=== PATIENT | male | born 1995 | race Caucasian/White ===

== ENCOUNTER 2017-06-14 19:35 | Emergency (ER) | payer SELFPAY ==
--- NOTE | 2017-06-14 20:49 | EDM.PDOC ---
ED HPI GENERAL MEDICAL PROBLEM - General Stated Complaint: PT HAS FLU SYMPTONS Time Seen by Provider: 06/14/17 20:10 Source of Information: Reports: Patient History Limitations: Reports: No Limitations - History of Present Illness INITIAL COMMENTS - FREE TEXT/NARRATIVE: HISTORY AND PHYSICAL: History of present illness: [Patient comes to the emergency room complaining of generalized malaise, body aches, fever and chills, dry hacking cough for the past 3 days. Has not checked temperature, but feels that he has had fever. He's been taking some ibuprofen on and off which does improve his symptoms. No abdominal pain nausea or vomiting. Had a couple episodes of loose stools today without blood. He has not had much appetite. No headache weakness numbness or tingling. States that he is otherwise healthy. No chronic medical conditions. Occasional alcohol use. Does not smoke cigarettes regularly.] Review of systems: As per history of present illness and below otherwise all systems reviewed and negative. Past medical history: As per history of present illness and as reviewed below otherwise noncontributory. Surgical history: As per history of present illness and as reviewed below otherwise noncontributory. Social history: No reported history of drug or alcohol abuse. Family history: As per history of present illness and as reviewed below otherwise noncontributory. Physical exam: HEENT: Atraumatic, normocephalic. TMs are pearly carlton and without erythema. Oral mucous membranes are pink and moist. Face is nontender with palpation. Neck supple, no lymphadenopathy. Lungs: Clear to auscultation, breath sounds equal bilaterally, chest nontender. Heart: S1S2, regular, negative for clicks, rubs, or JVD. Abdomen: Soft, nondistended, nontender. Negative for costovertebral tenderness. Pelvis: Stable nontender. Genitourinary: Deferred. Rectal: Deferred. Extremities: Atraumatic, negative for cords or calf pain. Neurovascular unremarkable. Neuro: Awake, alert, oriented. Motor and sensory unremarkable throughout. Exam nonfocal. Diagnostics: [Influenza swab] Therapeutics: [] Impression: [Influenza B] Plan: [Discussed lab results with patient. He is currently afebrile and appears comfortable in exam room. Recommend discharge to home with conservative and symptomatic therapies reviewed. Strict return precautions are discussed. He is in agreement with today's plan. All questions are answered and concerns are addressed. He is given a note excusing him from work until the very 2017.] Definitive disposition and diagnosis as appropriate pending reevaluation and review of above. throat Pain Score (Numeric/FACES): 9 - Related Data Allergies Allergy/AdvReac Type Severity Reaction Status Date / Time No Known Allergies Allergy Verified 06/14/17 20:09 Home Meds: Home Meds . [No Known Home Meds] 06/14/17 [History] ED ROS GENERAL - Review of Systems Review Of Systems: ROS reveals no pertinent complaints other than HPI. ED EXAM, GENERAL - Physical Exam Exam: See Below Course - Vital Signs Last Recorded V/S: Last Vital Signs Temp 98.6 F 06/14/17 20:03 Pulse 93 06/14/17 20:03 Resp 18 06/14/17 20:03 BP 130/72 06/14/17 20:03 Pulse Ox 97 06/14/17 20:03 Departure - Departure Time of Disposition: 21:00 Disposition: Home, Self-Care 01 Condition: Good Clinical Impression: Influenza B - Discharge Information Instructions: Influenza, Adult, [id number] Referrals: PCP,None [Primary Care Provider] - Forms: ED Department Discharge Additional Instructions: The following information is given to patients seen in the emergency department who are being discharged to home. This information is to outline your options for follow-up care. We provide all patients seen in our emergency department with a follow-up referral. The need for follow-up, as well as the timing and circumstances, are variable depending upon the specifics of your emergency department visit. If you don't have a primary care physician on staff, we will provide you with a referral. We always advise you to contact your personal physician following an emergency department visit to inform them of the circumstance of the visit and for follow-up with them and/or the need for any referrals to a consulting specialist. The emergency department will also refer you to a specialist when appropriate. This referral assures that you have the opportunity for follow-up care with a specialist. All of these measure are taken in an effort to provide you with optimal care, which includes your follow-up. Under all circumstances we always encourage you to contact your private physician who remains a resource for coordinating your care. When calling for follow-up care, please make the office aware that this follow-up is from your recent emergency room visit. If for any reason you are refused follow-up, please contact the [facility] emergency department at and asked to speak to the emergency department charge nurse. [facility] [address] [place] [id number] Follow-up with a local primary care provider at the clinic listed above in 48- 72 hours. take Robitussin or Delsym cough syrup as needed for chest congestion. Alternate Tylenol with ibuprofen every 2-3 hours as needed for fever or discomfort. It is imperative that you rest and push fluids. Return to ER as needed as discussed.
== END 2017-06-14 21:13 | disposition home or self-care (01) ==
LOC: MW.ED 19:35
DX: J10.1 Influenza due to other identified influenza virus with other respiratory manifestations (principal)
CPT/HCPCS: 87804; 99283

== ENCOUNTER 2019-02-20 09:06 | Emergency (ER) | payer BC ==
[2019-02-20] MEDS ORDERED: Ondansetron 4 MG Tab.DIS PO ONE (09:39)
[2019-02-20] MEDS ORDERED: Sodium Chloride 0.9% 1,000 ML IV ONE (09:48)
[2019-02-20] MEDS ORDERED: Ondansetron 4 MG/2 ML SDV IVPUSH ONE (09:56)
[2019-02-20] MEDS ORDERED: Ondansetron 4 MG/2 ML SDV ONE (09:59)
--- NOTE | 2019-02-20 10:08 | EDM.PDOC ---
ED HPI GENERAL MEDICAL PROBLEM - General Chief Complaint: General Stated Complaint: FEVER,LIGHT HEADED Time Seen by Provider: 02/20/19 09:23 Source of Information: Reports: Patient History Limitations: Reports: No Limitations - History of Present Illness INITIAL COMMENTS - FREE TEXT/NARRATIVE: HISTORY AND PHYSICAL: History of present illness: 23-year-old male presents to ER today complaining of subjective fevers, dry cough and headache for the past 1 week. He reports waking up this morning and feeling lightheaded which prompted him to come to the ER for further evaluation. Patient reports that his headache is exacerbated by bright lights. He also complains of nausea and decreased appetite. Patient is a non-smoker and denies any illicit drug use including vaping. He reports being up to date on all childhood vaccines. Patient denies having any muscle aches, neck pain, shortness of breath, chest pain or sinus pressure pain. Review of systems: As per history of present illness and below otherwise all systems reviewed and negative. Past medical history: As per history of present illness and as reviewed below otherwise noncontributory. Surgical history: As per history of present illness and as reviewed below otherwise noncontributory. Social history: No reported history of drug or alcohol abuse. Family history: As per history of present illness and as reviewed below otherwise noncontributory. Physical exam: HEENT: Atraumatic, normocephalic, pupils reactive, negative for conjunctival pallor or scleral icterus, mucous membranes moist, mild pharyngeal erythema. Neck: supple, trachea midline, non-tender to palpation, Brudzinski's sign negative. Lungs: Clear to auscultation. Heart: S1S2, regular. Abdomen: Soft, nondistended, nontender. Normal bowel sounds. Pelvis: Deferred Genitourinary: Deferred. Rectal: Deferred. Extremities: No lower extremity edema. Neuro: Awake, alert, oriented. Cranial nerves II through XII unremarkable. Motor and sensory unremarkable throughout. Exam nonfocal. Diagnostics: CBC, CMP, rapid strep, influenza swab, CXR, EKG Therapeutics: IVF, zofran Impression: 1. Community acquired pneumonia Plan: 1. Script provided for azithromycin and albuterol inhaler prn. Tylenol prn fevers. Recommended following up with PCP within 1 week. RTC for persistent or worsening symptoms. Definitive disposition and diagnosis as appropriate pending reevaluation and review of above. Headache Pain Score (Numeric/FACES): 10 - Related Data Allergies Allergy/AdvReac Type Severity Reaction Status Date / Time No Known Allergies Allergy Verified 02/20/19 09:27 Home Meds: Home Meds Albuterol Sulfate [Albuterol Sulfate Hfa] 18 gm IH Q6H PRN 30 Days #1 [email or web address] 02/20/19 [Rx] Azithromycin 250 mg PO DAILY 5 Days #6 tablet 02/20/19 [Rx] Past Medical History HEENT History: Reports: None - Past Surgical History HEENT Surgical History: Reports: Tonsillectomy Social & Family History - Family History Family Medical History: Noncontributory - Tobacco Use Smoking Status *Q: Never Smoker Second Hand Smoke Exposure: No - Caffeine Use Caffeine Use: Reports: None - Recreational Drug Use Recreational Drug Use: No ED ROS GENERAL - Review of Systems Review Of Systems: ROS reveals no pertinent complaints other than HPI. ED EXAM, GENERAL - Physical Exam Exam: See Below Course - Vital Signs Last Recorded V/S: Last Vital Signs Temp 97.4 F 02/20/19 09:25 Pulse 93 02/20/19 09:25 Resp 18 02/20/19 09:25 BP 108/63 02/20/19 09:25 Pulse Ox 93 L 02/20/19 09:25 - Orders/Labs/Meds Orders: Active Orders 24 hr Category Date Time Status EKG Documentation Completion [RC] STAT Care 02/20/19 09:48 Ordered CULTURE STREP A CONFIRMATION [] Stat Lab 02/20/19 10:43 Results STREP SCRN A RAPID W CULT CONF [RM] Stat Lab 02/20/19 09:48 Ordered Labs: Laboratory Tests 02/20/19 02/20/19 Range/Units 10:05 10:05 WBC 9.02 (4.0-11.0) K/uL RBC 5.15 (4.50-5.90) M/uL Hgb 15.0 (13.0-17.0) g/dL Hct 44.7 (38.0-50.0) % MCV 86.8 (80.0-98.0) fL MCH 29.1 (27.0-32.0) pg MCHC 33.6 (31.0-37.0) g/dL RDW Std Deviation 44.0 (28.0-62.0) fl RDW Coeff of Efren 14 (11.0-15.0) % Plt Count 242 (150-400) K/uL MPV 9.60 (7.40-12.00) fL Neut % (Auto) 70.0 (48.0-80.0) % Lymph % (Auto) 18.7 (16.0-40.0) % [place] % (Auto) 10.9 (0.0-15.0) % Eos % (Auto) 0.3 (0.0-7.0) % Baso % (Auto) 0.1 (0.0-1.5) % Neut # (Auto) 6.3 H (1.4-5.7) K/uL Lymph # (Auto) 1.7 (0.6-2.4) K/uL [place] # (Auto) 1.0 H (0.0-0.8) K/uL Eos # (Auto) 0.0 (0.0-0.7) K/uL Baso # (Auto) 0.0 (0.0-0.1) K/uL Nucleated RBC % 0.0 /100WBC Nucleated RBCs # 0 K/uL Sodium 137 (136-148) mmol/L Potassium 4.0 (3.5-5.1) mmol/L Chloride 99 (98-107) mmol/L Carbon Dioxide 26.3 (21.0-32.0) mmol/L BUN 11 (7.0-18.0) mg/dL Creatinine 1.4 H (0.8-1.3) mg/dL Est Cr Clr Drug Dosing 101.61 mL/min Estimated GFR (MDRD) > 60.0 ml/min Glucose 110 H (74-106) mg/dL Calcium 9.2 (8.5-10.1) mg/dL Total Bilirubin 0.5 (0.2-1.0) mg/dL AST 26 (15-37) IU/L ALT 39 (14-63) IU/L Alkaline Phosphatase 69 (46-116) U/L Total Protein 8.1 (6.4-8.2) g/dL Albumin 3.5 (3.4-5.0) g/dL Globulin 4.6 H (2.6-4.0) g/dL Albumin/Globulin Ratio 0.8 L (0.9-1.6) Meds: Medications Discontinued Medications Generic Name Dose Route Start Last Admin Trade Name Freq PRN Reason Stop Dose Admin Sodium Chloride 1,000 mls @ 999 mls/hr 02/20/19 09:48 02/20/19 10:13 Normal Saline IV 02/20/19 10:48 999 mls/hr STAT ONE Administration Ketorolac Tromethamine 30 mg 02/20/19 10:44 02/20/19 10:54 Toradol IVPUSH 02/20/19 10:45 30 mg ONETIME ONE Administration Ondansetron HCl 4 mg 02/20/19 09:39 02/20/19 09:56 Zofran Odt PO 02/20/19 09:40 Not Given ONETIME ONE Ondansetron HCl 4 mg 02/20/19 09:56 02/20/19 10:13 Zofran IVPUSH 02/20/19 09:57 4 mg ONETIME ONE Administration Ondansetron HCl Confirm 02/20/19 09:59 02/20/19 10:20 Zofran Administered 02/20/19 10:00 Not Given Dose 4 mg .ROUTE .STK-MED ONE Departure - Departure Time of Disposition: 11:19 Disposition: Home, Self-Care 01 Condition: Fair Clinical Impression: Community acquired pneumonia - Discharge Information *PRESCRIPTION DRUG MONITORING PROGRAM REVIEWED*: Not Applicable *COPY OF PRESCRIPTION DRUG MONITORING REPORT IN PATIENT CORBIN: Not Applicable Prescriptions: Albuterol Sulfate [Albuterol Sulfate Hfa] 18 gm IH Q6H PRN 30 Days #1 hfa.aer.ad PRN Reason: Shortness Of Breath Azithromycin 250 mg PO DAILY 5 Days #6 tablet Instructions: Community-Acquired Pneumonia, Adult Referrals: PCP,None [Primary Care Provider] - Forms: ED Department Discharge Additional Instructions: The following information is given to patients seen in the emergency department who are being discharged to home. This information is to outline your options for follow-up care. We provide all patients seen in our emergency department with a follow-up referral. The need for follow-up, as well as the timing and circumstances, are variable depending upon the specifics of your emergency department visit. If you don't have a primary care physician on staff, we will provide you with a referral. We always advise you to contact your personal physician following an emergency department visit to inform them of the circumstance of the visit and for follow-up with them and/or the need for any referrals to a consulting specialist. The emergency department will also refer you to a specialist when appropriate. This referral assures that you have the opportunity for follow-up care with a specialist. All of these measure are taken in an effort to provide you with optimal care, which includes your follow-up. Under all circumstances we always encourage you to contact your private physician who remains a resource for coordinating your care. When calling for follow-up care, please make the office aware that this follow-up is from your recent emergency room visit. If for any reason you are refused follow-up, please contact the [facility] Emergency Department at and asked to speak to the emergency department charge nurse. - My Orders Last 24 Hours: My Active Orders 02/20/19 09:48 EKG Documentation Completion [RC] STAT STREP SCRN A RAPID W CULT CONF [RM] Stat 02/20/19 10:43 CULTURE STREP A CONFIRMATION [RM] Stat - Assessment/Plan Last 24 Hours: My Active Orders 02/20/19 09:48 EKG Documentation Completion [RC] STAT STREP SCRN A RAPID W CULT CONF [RM] Stat 02/20/19 10:43 CULTURE STREP A CONFIRMATION [RM] Stat
--- NOTE | 2019-02-20 10:37 | CR ---
INDICATION: [id number]. Comparison: None. TECHNIQUE: Upright chest single view. FINDINGS: Normal size cardiac silhouette. Patchy infiltrates left lower lobe. No pneumothorax or pleural effusion. IMPRESSION: Infiltrates left lower lobe. Dictated by Zina Victor MD @ Feb 20 2019 10:34AM Signed by Dr. Zina Victor @ Feb 20 2019 10:36AM
[2019-02-20] MEDS ORDERED: Ketorolac 60 MG/2 ML SDV IM ONE (10:43)
[2019-02-20] MEDS ORDERED: Ketorolac 30 MG/ML SDV IVPUSH ONE (10:44)
[2019-02-20 10:56] LABS: BLOOD UREA NITROGEN,BUN 11 mg/dL (7.0-18.0); CARBON DIOXIDE,CO2 26.3 mmol/L (21.0-32.0); CHLORIDE,CL 99 mmol/L (98-107); GLUCOSE RANDOM 110 mg/dL (74-106); SODIUM,NA 137 mmol/L (136-148)
== END 2019-02-20 11:35 | disposition home or self-care (01) ==
LOC: MW.ED 09:06
DX: J18.9 Pneumonia, unspecified organism (principal)
CPT/HCPCS: 36415; 71045; 80053; 85025; 87081; 87804; 87880; 93005; 96361; 96374; 96375; 99283; J1885; J2405; J7040

== ENCOUNTER 2023-05-19 05:37 | Emergency (ER) | payer BC ==
[2023-05-19] MEDS ORDERED: Sodium Chloride 0.9% 2,000 ML IV ONE (05:55)
[2023-05-19] MEDS: Sodium Chloride 0.9% 10 ML Syringe FLUSH PRN ×2 (06:01→07:35)
[2023-05-19] MEDS: Sodium Chloride 0.9% 2.5 ML Syringe FLUSH PRN ×2 (06:01→07:36)
[2023-05-19 06:02] LABS: BASOPHILS ABSOLUTE AUTO 0.02 K/uL (0.00-0.20); BASOPHILS PERCENT AUTO 0.3 % (0.0-1.0); EOSINOPHILS ABSOLUTE AUTO 0.11 K/uL (0.00-0.45); EOSINOPHILS PERCENT AUTO 1.7 % (0.0-6.0); HEMATOCRIT 48.5 % (42.0-52.0); HEMOGLOBIN 16.7 g/dL (14.0-18.0); IMMATURE GRAN ABSOLUTE AUTO 0.01 K/uL (0.00-0.05); IMMATURE GRAN PERCENT AUTO 0.2 % (0.0-0.4); LYMPHOCYTES ABSOLUTE AUTO 2.77 K/uL (1.00-4.80); LYMPHOCYTES PERCENT AUTO 42.2 % (24.0-44.0); MEAN CORPUSCULAR HEMOGLOBIN 30.4 pg (28.0-32.0); MEAN CORPUSCULAR HGB CONC 34.4 g/dL (32.0-36.0); MEAN CORPUSCULAR VOLUME 88.2 fL (83.0-99.0); MEAN PLATELET VOLUME 9.1 fL (9.4-12.4); MONOCYTES ABSOLUTE AUTO 0.67 K/uL (0.00-0.80); MONOCYTES PERCENT AUTO 10.2 % (0.0-8.0); NEUTROPHILS ABSOLUTE AUTO 2.99 K/uL (1.80-7.70); NEUTROPHILS PERCENT AUTO 45.4 % (41.0-71.0); PLATELET COUNT,PLT 308 K/uL (150-400); WHITE BLOOD CELL COUNT,WBC 6.57 K/uL (3.9-11.3)
[2023-05-19] MEDS ORDERED: Famotidine 20 MG/2 ML SDV IVPUSH ONE (06:10)
[2023-05-19 06:26] LABS: A/G RATIO 0.9 (0.9-1.6); ALANINE AMINOTRANSFERASE,ALT 38 IU/L (14-63); ALBUMIN 3.8 g/dL (3.4-5.0); ALKALINE PHOSPHATASE 57 U/L (46-116); ASPARTATE AMNIOTRANSFERASE,AST 16 IU/L (15-37); BILIRUBIN TOTAL 0.6 mg/dL (0.2-1.0); BLOOD UREA NITROGEN,BUN 17 mg/dL (7.0-18.0); CALCIUM 8.9 mg/dL (8.5-10.1); CHLORIDE,CL 103 mmol/L (98-107); CREATININE 1.3 mg/dL (0.8-1.3); EST CRCL DRUG DOSING (CG) 105.72 mL/min; GLUCOSE RANDOM 101 mg/dL (74-106); LIPASE 45 U/L (16-77); POTASSIUM,K 3.9 mmol/L (3.5-5.1); PROTEIN TOTAL,TP 7.8 g/dL (6.4-8.2); SODIUM,NA 141 mmol/L (136-148)
[2023-05-19 06:39] LABS: ESTIMATED GFR 78 mL/min (>60); ETHANOL BLOOD MEDICAL < 3.0 mg/dL
[2023-05-19 06:49] LABS: CORONAVIRUS COVID-19 NAA NEGATIVE (NEGATIVE); INFLUENZA A NAA NEGATIVE (NEGATIVE); INFLUENZA B NAA NEGATIVE (NEGATIVE)
[2023-05-19 07:04] LABS: AMPHETAMINES SCREEN, URINE NEGATIVE (CUTOFF=500); BARBITURATE SCREEN,URINE NEGATIVE (CUTOFF=200); BENZODIAZEPINES SCREEN,URINE NEGATIVE (CUTOFF=150); BUPRENORPHINE SCREEN,URINE NEGATIVE (CUTOFF=10); METHADONE SCREEN, URINE NEGATIVE (CUTOFF=200); METHAMPHETAMINES SCREEN, URINE NEGATIVE (CUTOFF=500); OXYCODONE SCREEN,URINE NEGATIVE (CUT0FF=100); PCP SCREEN,URINE NEGATIVE (CUTOFF=25); THC SCREEN,URINE 20 NG/ML NEGATIVE (CUTOFF=50)
== END 2023-05-19 08:17 | disposition home or self-care (01) ==
LOC: MW.ED 05:37
DX: R19.7 Diarrhea, unspecified (principal)
CPT/HCPCS: 0240U; 36415; 80053; 80305; 80307; 83690; 85025; 96361; 96374; 99284; J3490; J7030